=== PATIENT | male | born 1980 | race Hispanic/Latino ===

== ENCOUNTER 2019-08-01 19:56 | Emergency (ER) | payer SELFPAY ==
--- NOTE | ~2019-08-01 | XR_ITS ---
EXAMINATION: XR chest 2V 08/01/2019 22:40 INDICATION: Cough, fever and body aches PROCEDURE: 2 view chest COMPARISON: No prior studies for comparison. FINDINGS: The lungs are clear. The cardiomediastinal silhouette is within normal limits. There are no pleural effusions. There is no pneumothorax suspected. IMPRESSION: 1: NO ACUTE CARDIOPULMONARY DISEASE. Reviewed, dictated and finalized at location A. IN[facility]
[2019-08-01 19:59] VITALS: BP 127/91; PULSE 84; RESP 16; TEMP 36.9; O2SAT 98
--- NOTE | 2019-08-01 21:08 | ED.GENADULT ---
HPI - General Adult General Chief complaint: Upper Respiratory Infection <VIRGILIO Gibbs Last Filed: 08/01/19 23:09> Stated complaint: body aches/fever/cough <Leelee Scott PA-C - Last Filed: 08/01/19 23:09> Time Seen by Provider: 08/01/19 20:36 <VIRGILIO Gibbs Last Filed: 08/01/19 23:09> Source: patient <Leelee Scott PA-C - Last Filed: 08/01/19 23:09> Mode of arrival: ambulatory <VIRGILIO Gibbs Last Filed: 08/01/19 23:09> Limitations: no limitations <VIRGILIO Gibbs Last Filed: 08/01/19 23:09> History of Present Illness HPI narrative: Patient is here for evaluation of fever, chills and cough. Both of his children were diagnosed with influenza earlier this week. His labs here were negative. His fever is subjective and he is afebrile here. He is complaining of pain in his right jaw as well, he attributes the pain to severe coughing. He is otherwise healthy, his son is interpreting for him as the patient does not speak Maldivian. <Leelee Scott PA-C - Last Filed: 08/01/19 23:09> Onset (ago): day(s) <Leelee Scott PA-C - Last Filed: 08/01/19 23:09> Severity: moderate <VIRGILIO Gibbs Last Filed: 08/01/19 23:09> Associated symptoms: cough and nausea/vomiting (post-tussive vomiting) <VIRGILIO Gibbs Last Filed: 08/01/19 23:09> Treatments prior to arrival: none <VIRGILIO Gibbs Last Filed: 08/01/19 23:09> Related Data Allergies/adverse reactions: Allergies Allergy/AdvReac Type Severity Reaction Status Date / Time No Known Allergies Allergy Verified 08/01/19 20:36 <VIRGILIO Gibbs Last Filed: 08/01/19 23:09> Review of Systems Review of Systems: All systems reviewed & are unremarkable except as noted in HPI and below <Leelee Scott PA-C - Last Filed: 08/01/19 23:09> [facility] Social History Social History: Social History (Updated 08/01/19 @ 21:30 by Leelee Scott PA-C) Smoking status: Never smoker Alcohol intake: current Alcohol use details: occasional Substance use: never Gender identity (if verbalized by the patient): Male <Leelee Scott PA-C - Last Filed: 08/01/19 23:09> Exam Const: General: no acute distress and alert <Leelee Scott PA-C - Last Filed: 08/01/19 23:09> Orientation/consciousness: patient oriented x3 <Leelee Scott PA-C - Last Filed: 08/01/19 23:09> HENMT: Head: normal to inspection <Leelee Scott PA-C - Last Filed: 08/01/19 23:09> Ears: TM's normal bilaterally <Leelee Scott PA-C - Last Filed: 08/01/19 23:09> General nose exam: Normal nasal mucous membranes and turbinates present <Leelee Scott PA-C - Last Filed: 08/01/19 23:09> Teeth and gingiva: caries (pain when tooth 2 is tapped with tongue blade.) <Leelee Scott PA-C - Last Filed: 08/01/19 23:09> Eyes: Conjunctivae: conjunctivae normal <Leelee Scott PA-C - Last Filed: 08/01/19 23:09> Pupils: Equal, round and reactive pupils present <Leelee Scott PA-C - Last Filed: 08/01/19 23:09> Neck: Neck: no lymphadenopathy <Leelee Scott PA-C - Last Filed: 08/01/19 23:09> Resp: Effort & Inspection: normal respiratory effort <Leelee Scott PA-C - Last Filed: 08/01/19 23:09> Auscultation: clear to auscultation bilaterally (cough with deep inspiration) <Leelee Scott PA-C - Last Filed: 08/01/19 23:09> Cardio: Rate: regular rate <VIRGILIO Gibbs Last Filed: 08/01/19 23:09> Rhythm: regular rhythm <VIRGILIO Gibbs Last Filed: 08/01/19 23:09> Skin: General skin exam: normal color <Leelee Scott PA-C - Last Filed: 08/01/19 23:09> Rashes: no rashes <Leelee Scott PA-C - Last Filed: 08/01/19 23:09> Neuro: General: patient oriented x3 <VIRGILIO Gibbs Last Filed: 08/01/19 23:09> Extrem: General: normal to inspection <VIRGILIO Gibbs Last Filed: 08/01/19 23:09> Psych: Mental Status: mental
[2019-08-01 22:18] VITALS: PULSE 95; RESP 16
[2019-08-01] MEDS: ALBUTEROL SULFATE NEB 2.5 MG/3 ML INH INHALATION (22:18)
[2019-08-01 22:27] VITALS: PULSE 97; RESP 16
== END 2019-08-01 23:25 | disposition home or self-care (01) ==
PROVIDERS: Emergency Provider General Practice
DX: J06.9 Acute upper respiratory infection, unspecified (principal)
CPT/HCPCS: 71046; 87804; 94640; 99283

== ENCOUNTER 2019-11-28 04:11 | Emergency (ER) | payer SELFPAY ==
[2019-11-28 04:08] VITALS: BP 127/90; PULSE 62; RESP 18; TEMP 37.1; O2SAT 100
--- NOTE | 2019-11-28 04:14 | ECG_ITS ---
Measurements Intervals [place] Rate: 65 P: 24 DC: 158 QRS: 29 QRSD: 86 T: 10 QT: 373 QTc: 388 Interpretive Statements SINUS RHYTHM BASELINE ARTIFACT- I, II, III, AVR, AVL, V1-V2 NORMAL ECG Electronically Signed On 11-28-2019 7:07:29 CDT by Francisco Enriquez D.O.
--- NOTE | 2019-11-28 04:16 | ED.GENADULT ---
HPI - General Adult General Chief complaint: Chest Pain Stated complaint: BACK PAIN Time Seen by Provider: 11/28/19 04:15 History of Present Illness HPI narrative: Awoken from sleep by back pain. The pain is in the mid back on the right side. It radiates to the anterior chest wall bilaterally. Worse with certain movements. 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 No injury. No fever chills. Related Data Allergies Allergy/AdvReac Type Severity Reaction Status Date / Time No Known Allergies Allergy Verified 08/01/19 20:36 Review of Systems Review of Systems: All systems reviewed & are unremarkable except as noted in HPI and below Constitutional: Constitutional: Denies fever(s) Cardiovascular: Cardiovascular: Reports chest pain (chest wall) Respiratory: Respiratory: Denies dyspnea Gastrointestinal: Gastrointestinal: Denies abdominal pain, Denies nausea and Denies vomiting Musculoskeletal: Musculoskeletal: Reports back pain Neurologic: Denies numbness and Denies weakness PMFSH Social History Social History Smoking status: Never smoker Alcohol intake: current Substance use: never Gender identity (if verbalized by the patient): Male Exam Const: General: healthy appearing, no acute distress and alert Orientation/consciousness: patient oriented x3 Limitations: no limitations HENMT: Head: normal to inspection Chest: Chest palpation & inspection: tenderness rib (diffuse) Resp: Effort & Inspection: normal respiratory effort Auscultation: clear to auscultation bilaterally Cardio: Rate: regular rate Rhythm: regular rhythm GI: GI Palp: Yes Soft to palpation and No Tenderness to palpation present (GI) Back/Spine/Pelvis: Other: thoracic paraspinal tenderness Neuro: General: patient oriented x3, moves all extremities and CN's II-XI intact bilaterally Speech: normal speech Course Vital Signs Vital signs: Vital Signs Temperature 37.1 C 11/28/19 04:08 Pulse Rate 62 11/28/19 04:08 Respiratory Rate 18 11/28/19 04:08 Blood Pressure 127/90 11/28/19 04:08 Pulse Oximetry 100 11/28/19 04:08 Temperature 37.1 C 11/28/19 04:08 Pulse Rate 59 L 11/28/19 06:24 Respiratory Rate 16 11/28/19 06:24 Blood Pressure 109/80 11/28/19 06:24 Pulse Oximetry 99 11/28/19 06:24 Medical Decision Making MDM Narrative Medical decision making narrative: Pain clearly seems to be musculoskeletal in nature. Most likely due to overuse of muscles that he is not accustomed to. EKG normal. Vitals normal. Exam benign. Vital Signs Vital Signs: Vital Signs Temperature 37.1 C 11/28/19 04:08 Pulse Rate 62 11/28/19 04:08 Respiratory Rate 18 11/28/19 04:08 Blood Pressure 127/90 11/28/19 04:08 Pulse Oximetry 100 11/28/19 04:08 Temperature 37.1 C 11/28/19 04:08 Pulse Rate 59 L 11/28/19 06:24 Respiratory Rate 16 11/28/19 06:24 Blood Pressure 109/80 11/28/19 06:24 Pulse Oximetry 99 11/28/19 06:24 ECG Data EKG #1: Attestation: I personally reviewed and interpreted this ECG as follows: ECG completion date: 11/28/19 ECG completion time: 04:14 EKG Interpretation: normal rate, sinus rhythm, no ectopy, no ST changes, normal QRS and NL axis Discharge Plan Discharge Clinical Impression: Acute thoracic myofascial strain Qualifiers: Encounter type: initial encounter Qualified Code(s): S29.019A - Strain of muscle and tendon of unspecified wall of thorax, initial encounter Patient Disposition: Home, Self-Care Condition: Stable Prescriptions: New cyclobenzaprine 10 mg tablet 10 mg PO TID PRN (Reason: muscle spasm) Qty: 20 RF: 0 hydrocodone-acetaminophen [[place]] 5-325 mg tablet 1 tablet PO Q6H PRN (Reason: pain) Qty: 5 RF: 0 naproxen 500 mg tablet 500 mg PO BID PRN (Reason: pain) Qty: 30 RF: 0 No Action albuterol sulfate 90 mcg
[2019-11-28] MEDS: KETOROLAC 30 MG/ML VIAL (*BKC) IV PUSH (04:22)
[2019-11-28] MEDS: SODIUM CHLORIDE 0.9% IV 100 ML 500 ML (04:26)
[2019-11-28 05:20] VITALS: BP 111/77; PULSE 58; RESP 18; O2SAT 100
[2019-11-28 06:24] VITALS: BP 109/80; PULSE 59; RESP 16; O2SAT 99
== END 2019-11-28 06:25 | disposition home or self-care (01) ==
PROVIDERS: Emergency Provider Emergency Medicine
DX: S29.019A Strain of muscle and tendon of unspecified wall of thorax, initial encounter (principal); X58.XXXA Exposure to other specified factors, initial encounter
CPT/HCPCS: 93005; 96374; 96375; 99284; A9270; J1885; J3360

== ENCOUNTER 2020-08-06 05:34 | Observation (INO) | payer SELFPAY ==
[2020-08-06] VITALS (8 sets, daily range): BP systolic 119–164; BP diastolic 68–106; PULSE 57–72; RESP 14–16; TEMP 35.8–36.4; O2SAT 95–100; BMI 31.5
--- NOTE | ~2020-08-06 | CT_ITS ---
EXAMINATION: CT abdomen pelvis wo con DATE: 08/06/2020 06:06 INDICATION: Flank pain TECHNIQUE: Computed tomography (CT) of the abdomen and pelvis was performed without intravenous contr ast. Automated exposure control and iterative reconstruction technique were employed. The dose-length product was 723.77 mGy-cm. COMPARISON: None FINDINGS: Lung bases are clear. Heart size is normal. No pericardial or pleural effusion. Diffuse hepatic steat osis with focal sparing at the gallbladder fossa. 12 mm nodular soft tissue density as well as a tiny calcified gallstone at the neck of the gallbladder. No evident gallbladder wall thickening or perich olecystic inflammatory change to suggest acute cholecystitis. Spleen, pancreas and bilateral adrenal glands are normal. A couple nonobstructing 1-2 mm stones in the left kidney. No stones in the right k idney or along the bilateral ureters with no hydronephrosis. Bladder is normal. Bowels including the appendix are normal. No free intraperitoneal gas or fluid. No pathologically enlarged abdominal or pe lvic lymphadenopathy. Tiny fat-containing right inguinal hernia. Mild thoracolumbar levocurvature. Sm all sclerotic left iliac bone island. IMPRESSION: 1. A couple nonobstructing 1-2 mm left renal stones. 2. Cholelithiasis and indeterminate 12 mm density The gallbladder most likely an additional gallstone although differential would include polyp/neoplas m. Consider ultrasound for further evaluation. 3. Diffuse hepatic steatosis. Reviewed, dictated and finalized at location A. [facility] IMPRESSION: 1. A couple nonobstructing 1-2 mm left renal stones. 2. Cholelithiasis and indeterminate 12 mm density The gallbladder most likely an additional gallstone although differential would include polyp/neoplasm. Consider ultrasound for further evaluation. 3. Diffuse hepatic steatosis.
--- NOTE | ~2020-08-06 | NM_ITS ---
EXAMINATION: NM hepatobiliary w pharm EXAM DATE: 08/06/2020 15:17 INDICATION: RUQ abdominal pain, acute cholecystitis? . TECHNIQUE: 5 mCi Tc-99m mebrofenin (Choletec) was administered intravenously. Scintigraphic images o f the abdomen were obtained for one hour. At the 1 hour time point, 2 mcg sincalide (Kinevac) was adm inistered by slow intravenous infusion, and imaging was continued for 30 minutes. Gallbladder ejectio n fraction was calculated by the technologist. Correlation is made to CT abdomen earlier same date. FINDINGS: There is normal clearance of radiotracer from the blood pool. There is homogeneous tracer u ptake by the liver. Activity progresses to the gallbladder and bowel. The gallbladder ejection fract ion (GBEF) is 7 % (most patients with gallbladder dysfunction have GBEF < 35%, but there is overlap w ith the normal range of 10-90%). IMPRESSION: Gallbladder ejection fraction 7%, suggesting gallbladder dysfunction and/or chronic chol ecystitis. Reviewed, dictated and finalized at location B. [facility] [employer] IMPRESSION: Gallbladder ejection fraction 7%, suggesting gallbladder dysfuncti on and/or chronic cholecystitis.
[2020-08-06] MEDS: ONDANSETRON INJ 4 MG/2 ML VIAL IV PUSH (05:58)
[2020-08-06] MEDS: MORPHINE SULFATE (*CRX) 4 MG/ML INJ IV PUSH (05:58)
[2020-08-06 05:59] LABS: Basophils Percent Auto 0.4 % (0.2-1.2); Eosinophils Absolute Auto 0.3 K/mm3 (0-0.3); Eosinophils Percent Auto 3.3 % (0-4.4); Hematocrit 45.9 % (42.0-52.0); Hemoglobin 15.8 g/dL (14.0-18.0); Immature Granulocyte Absolute 0.04 K/mm3 (0.00-0.031); Immature Granulocyte Percent A 0.5 % (0-0.5); Lymphocytes Absolute Auto 3.96 K/mm3 (0.9-3.2); Lymphocytes Percent Auto 47.8 % (18.3-44.2); Mean Corpuscular HGB Conc 34.4 g/dl (32-36); Mean Corpuscular Hemoglobin 31.9 pg (26-34); Mean Corpuscular Volume 92.5 fl (80-100); Mean Platelet Volume 11.2 fl (7.4-10.4); Monocytes Absolute Auto 0.8 K/mm3 (0.1-0.6); Monocytes Percent Auto 9.3 % (2.6-8.5); Neutrophils Absolute Auto 3.2 K/mm3 (1.3-6.7); Neutrophils Percent Auto 38.7 % (45.5-73.1); Platelet Count Result 188 k/mm3 (150-375); Red Blood Count 4.96 M/mm3 (4.6-6.20); Red Cell Distribution Width 13.2 % (11.5-14.5); White Blood Count 8.3 K/mm3 (4.5-10.0)
[2020-08-06] MEDS: SODIUM CHLORIDE 0.9% IV 1,000 ML 999 ML IV CONT (06:00)
[2020-08-06 06:11] LABS: Alanine Aminotransferase 99 U/L (4-50); Albumin Level 4.1 g/dL (3.5-5.1); Alkaline Phosphatase 94 U/L (38-126); Anion Gap 6 mmol/L (8-16); Aspartate Amino Transferase 41 U/L (17-59); Bilirubin,Total 0.6 mg/dL (0.2-1.3); Blood Urea Nitrogen 8 mg/dL (9-20); Calcium 8.5 mg/dL (8.4-10.2); Carbon Dioxide 29 mmol/L (22-30); Chloride 106 mmol/L (98-107); Estimated Glomerular Filt Rate > 60; Glucose 121 mg/dL (75-110); Potassium 3.8 mmol/L (3.4-5.0); Sodium 141 mmol/L (137-145)
--- NOTE | 2020-08-06 06:13 | ED.GENADULT ---
HPI - General Adult General Chief complaint: Abdominal Pain Stated complaint: abd pain Time Seen by Provider: 08/06/20 05:51 History of Present Illness HPI narrative: Patient a 39-year-old gentleman who presents the emergency department with chief complaint of flank pain. The patient states that the left flank area started hurting reports it radiates to his abdomen. The patient reports she is unable to get comfortable in any position reports that he has had some nausea with it as well. The patient denies fever denies chills denies cough. Patient reports has had no diarrhea. Patient reports he has prior surgical history of hernia repair Related Data Allergies Allergy/AdvReac Type Severity Reaction Status Date / Time No Known Allergies Allergy Verified 08/01/19 20:36 Review of Systems Review of Systems: Narrative: A 10 system review of systems was completed on the patient and is negative except for what is stated in the HPI. Nursing and ancillary documentation was reviewed. [facility] Social History Social History Smoking status: Never smoker Alcohol intake: current Substance use: never Gender identity (if verbalized by the patient): Male Comments Past medical history is negative Surgical history significant for hernia repair Exam Narrative: Exam Narrative: GENERAL: Well-appearing, well-nourished, and in no acute distress. HEAD: Normocephalic, atraumatic. EYES: PERRLA and EOMI. ENT: Nares clear, no rhinorrhea or epistaxis. Mucous membranes moist. NECK: Supple. CHEST: Clear to auscultation. No respiratory distress. HEART: Regular rate and rhythm. No murmur heard. Normal peripheral pulses. ABDOMEN: Soft, nontender, nondistended, normal active bowel sounds. EXTREMITIES: Normal range of motion. No edema. SKIN: Warm, dry, no rash. NEURO: No focal deficits. Alert and oriented x3. PSYCH: Normal mood and affect. Course Course Emergency Course: Patient CT scan showed evidence of gallstones with a 1.1 cm stone and a 0.3 cm stone in the gallbladder neck. There is a surrounding fat stranding concerning for acute cholecystitis. Patient's liver enzymes did not show any evidence of obstructive pattern patient's white blood cell count was within normal limits the patient's pain was improved but still is having pain at this time the case was discussed with Dr. Deal of general surgery and the patient will be admitted to Dr. Deal service Vital Signs Vital signs: Vital Signs Temperature 36.4 C 08/06/20 05:38 Pulse Rate 65 08/06/20 05:38 Respiratory Rate 16 08/06/20 05:38 Blood Pressure 164/106 H 08/06/20 05:38 Pulse Oximetry 100 08/06/20 05:38 Temperature 36.3 C L 08/06/20 06:52 Pulse Rate 64 08/06/20 06:52 Respiratory Rate 16 08/06/20 06:52 Blood Pressure 135/83 08/06/20 06:52 Pulse Oximetry 100 08/06/20 06:52 Medical Decision Making Vital Signs Vital Signs: Vital Signs Temperature 36.4 C 08/06/20 05:38 Pulse Rate 65 08/06/20 05:38 Respiratory Rate 16 08/06/20 05:38 Blood Pressure 164/106 H 08/06/20 05:38 Pulse Oximetry 100 08/06/20 05:38 Temperature 36.3 C L 08/06/20 06:52 Pulse Rate 64 08/06/20 06:52 Respiratory Rate 16 08/06/20 06:52 Blood Pressure 135/83 08/06/20 06:52 Pulse Oximetry 100 08/06/20 06:52 Lab Data Result diagrams: 08/06/20 05:53 08/06/20 05:53 Labs: Lab Results 08/06/20 08/06/20 08/06/20 Range/Units 05:53 05:53 06:33 WBC 8.3 (4.5-10.0) K/mm3 RBC 4.96 (4.6-6.20) M/mm3 Hgb 15.8 (14.0-18.0) g/dL Hct 45.9 (42.0-52.0) % MCV 92.5 (80-100) fl MCH 31.9 (26-34) pg MCHC 34.4 (32-36) g/dl RDW 13.2 (11.5-14.5) % Plt Count 188 (150-375) k/mm3 MPV 11.2 H (7.4-10.4) fl Immature Gran % (Auto) 0.5 (0-0.5) % Neut % (Auto) 38.7 L (45.5-73.1) % Lymph % (Auto) 47.8 H
[2020-08-06] MEDS: HYDROmorphone HCL INJ (*CRX) 1 MG/ML SYR IV PUSH (06:30)
[2020-08-06 07:02] LABS: Add Urine Microscopic? NO; Appearance Urine Clear (Clear); Bilirubin Urine Negative (Negative); Blood Urine Negative (Negative); Color Urine Yellow (Yellow); Glucose Urine UA Negative (Negative); Ketones Urine Negative (Negative); Leukocyte Esterase Ur Negative LEU/UL (Negative); Mucus Urine Few /lpf; Nitrate Urine Negative (Negative); Protein Urine Negative (Negative); RBC Urine 0-2 /hpf (0-2); Specific Grav Ur 1.029 (1.001-1.035); Urobilinogen Urine Negative mg/dL (<2.0); WBC Urine 0-3 /hpf
[2020-08-06 08:13] LABS: Amylase 78 U/L (30-110); Lipase 70 U/L (23-300)
--- NOTE | 2020-08-06 08:45 | ADMGEN ---
This patient, Kamran Hall, was admitted to Medical Room 342-01. Patient/family oriented to hospital policies and general routines including ID bracelet, bed and alarms, visiting hours, pain management, procedures, bathroom and other care routines, personal items, smoking policy, room service/diet, and visiting hours. Information on how to activate the Rapid Response Team has been discussed. Patient/Family are encouraged to report perceived risks to care and to ask questions if they do not understand what they are told or what they should do.
--- NOTE | 2020-08-06 09:32 | PM.IMHP ---
H&P: HPI History of Present Illness Date/Time: 08/06/20 09:32 Chief Complaint: Upper abdominal pain Narrative: Kamran Hall is a 39 year old male with no significant past medical history, who presented to the ER with complaints of right flank and RUQ abdominal pain. Last night for dinner he had a bologna sandwich and chiles with hot sauce. He woke up around 4:00 am with a sudden onset of right flank pain. He reports this pain radiated to his upper abdomen and to his mid back. He has associated bloating, but denies nausea, vomiting, or fevers. Never had this pain in the past. With the unrelenting abdominal pain, he presented to the ER for further evaluation. CT scan of the abdomen and pelvis was done in the ER and the virtual radiologist interpretation suggested gallstone/sludge in the neck of the gallbladder with gallbladder distention and mild infiltration of the adjacent fat, concerning for acute cholecystitis. The radiologist reading this morning suggests a 12 mm nodular soft tissue density as well as a tiny gallstone at the neck of the gallbladder with no evidence wall thickening or pericholecystic inflammatory change. Incidentally noted is a couple nonobstructing 1-2 mm left renal stones, diffuse hepatic steatosis, and a tiny fat-containing right inguinal hernia. Labs showed a normal white blood cell count, normal LFTs, and normal lipase. Our service was consulted by the ED physician for possible acute cholecystitis. The patient is now being seen on the medical floor. He reports his abdominal pain has improved significantly. He denies any other complaints at this time. He has had a previous ventral hernia repair with mesh in [place] about 15 years ago, but no other abdominal surgeries. He is primarily [place]ese-speaking and an typesetters printer was used when communicating with the patient. Review of Systems Constitutional: Constitutional: Reports as per HPI, Denies chills, Denies fatigue, Denies fever(s) and Denies headache(s) Eyes: Eyes: Reports no additional eye complaints, Denies change in vision and Denies loss of vision ENT: Reports Normal hearing present, Denies dizziness and Denies headache(s) Cardiovascular: Cardiovascular: Reports no additional cardiovascular complaints, Denies chest pain, Denies syncope, Denies leg edema, Denies lightheadedness, Denies radiating jaw, neck or arm pain and Denies dyspnea Respiratory: Respiratory: Reports no additional respiratory complaints, Denies cough, Denies dyspnea and Denies wheezing Gastrointestinal: Gastrointestinal: Reports as per HPI, Reports no additional gastrointestinal complaints, Reports abdominal pain (upper radiating to right flank and mid back), Reports bloating, Denies change in bowel habits, Denies constipation, Denies diarrhea, Denies nausea and Denies vomiting Genitourinary: Genitourinary: Reports no additional male genitourinary complaints, Denies hematuria and Denies dysuria Musculoskeletal: Musculoskeletal: Reports no additional musculoskeletal complaints, Denies deformity, Denies joint swelling, Denies radiating pain into limb and Denies tingling Integumentary/Breasts: Skin/Breast: Denies pruritus, Denies lesions, Denies erythema, Denies wounds and Denies jaundice Neurologic: Reports system reviewed and no additional complaints, except as documented, Reports Normal hearing present, Denies dizziness, Denies syncope, Denies headache(s), Denies loss of vision, Denies tingling and Denies tremor(s) Psychiatric: Psychiatric: Denies anxiety and Denies depression Endocrine: Endocrine: Denies fatigue PMFSH Past Medical History Medical History Back pain Surgical History Surgical History History of hernia repair Ventral hernia repair with mesh about 15-16 years ago in [place]. Family History Family History Mother
[2020-08-06] MEDS: SODIUM CHLORIDE 0.9% IV 1,000 ML 125 ML IV CONT (11:33)
--- NOTE | 2020-08-06 13:28 | PC.NURSE ---
Patient to radiology via hospital wheelchair.
--- NOTE | 2020-08-06 15:00 | PC.NURSE ---
Patient returned from radiology via hospital wheelchair.
[2020-08-07] VITALS (12 sets, daily range): BP systolic 119–145; BP diastolic 69–90; PULSE 58–82; RESP 13–18; TEMP 35.6–36.6; O2SAT 94–100
[2020-08-07] MEDS: SODIUM CHLORIDE 0.9% IV 1,000 ML 125 ML IV CONT (02:25)
[2020-08-07] MEDS: CHLORHEXIDINE GLUCONATE 4% SOL 120 ML BTL 1 APPLIC TOPICAL (06:05)
[2020-08-07 06:10] LABS: Alanine Aminotransferase 133 U/L (4-50); Albumin Level 3.9 g/dL (3.5-5.1); Alkaline Phosphatase 62 U/L (38-126); Anion Gap 4 mmol/L (8-16); Aspartate Amino Transferase 54 U/L (17-59); Blood Urea Nitrogen 7 mg/dL (9-20); Calcium 8.7 mg/dL (8.4-10.2); Carbon Dioxide 31 mmol/L (22-30); Chloride 103 mmol/L (98-107); Estimated CRCL calculation 119 ml/min; Estimated Glomerular Filt Rate > 60; Glucose 104 mg/dL (75-110); Lipase 51 U/L (23-300); Potassium 3.8 mmol/L (3.4-5.0); Sodium 138 mmol/L (137-145)
[2020-08-07 06:34] LABS: Basophils Percent Auto 0.4 % (0.2-1.2); Eosinophils Absolute Auto 0.2 K/mm3 (0-0.3); Eosinophils Percent Auto 2.5 % (0-4.4); Hematocrit 43.9 % (42.0-52.0); Hemoglobin 15.1 g/dL (14.0-18.0); Immature Granulocyte Absolute 0.06 K/mm3 (0.00-0.031); Immature Granulocyte Percent A 0.8 % (0-0.5); Lymphocytes Absolute Auto 3.03 K/mm3 (0.9-3.2); Lymphocytes Percent Auto 42.9 % (18.3-44.2); Mean Corpuscular HGB Conc 34.4 g/dl (32-36); Mean Corpuscular Hemoglobin 31.1 pg (26-34); Mean Corpuscular Volume 90.3 fl (80-100); Mean Platelet Volume 11.5 fl (7.4-10.4); Monocytes Absolute Auto 0.6 K/mm3 (0.1-0.6); Monocytes Percent Auto 8.5 % (2.6-8.5); Neutrophils Absolute Auto 3.2 K/mm3 (1.3-6.7); Neutrophils Percent Auto 44.9 % (45.5-73.1); Platelet Count Result 197 k/mm3 (150-375); Red Blood Count 4.86 M/mm3 (4.6-6.20); Red Cell Distribution Width 12.8 % (11.5-14.5); White Blood Count 7.1 K/mm3 (4.5-10.0)
--- NOTE | 2020-08-07 08:35 | P.HPUP_ITS ---
History and Physical Update Update Date/Time: 08/07/20 08:35 History and Physical has been reviewed, including an updated exam of the patient. There are changes in the patient's condition. Patient had a HIDA scan with ejection fraction yesterday showing only a 7% ejection fraction but sug gesting chronic cholecystitis with cholelithiasis rather than acute cholecystitis. Risks, benefits, and alternatives A laparoscopic cholecystectomy, possible intraoperative cholangiogram, possible open cholecystectomy have been discussed and questions answered. Patient agrees to proceed with procedure.
--- NOTE | 2020-08-07 09:27 | WPDANESEPPF ---
Anes - Initial Pre Proc Eval Procedure: Operation Date: 08/07/20 11:00 Proposed Procedures p Laparoscopic Cholecystectomy,Possible Intraoperative Cholangiograms,Possible Open - Justen Deal MD Date/Time: 08/07/20 09:27 Surgeon: Justen Deal MD Pre Op Diagnosis: Cholelithiasis, Biliary Colic Patient Data Age: 39 Gender: M Height: 1.73 m Weight: 94.1 kg Last Vital Signs Temp 35.8 C L 08/07/20 08:52 Pulse 60 08/07/20 08:52 Resp 13 08/07/20 08:52 BP 141/90 H 08/07/20 08:52 Pulse Ox 98 08/07/20 08:52 Allergies Allergy/AdvReac Type Severity Reaction Status Date / Time No Known Allergies Allergy Verified 08/06/20 09:30 Home Medications Medication Instructions Recorded Confirmed Type cyclobenzaprine 10 mg PO TID PRN #20 tablet 11/28/19 08/06/20 Rx hydrocodone-acetaminophen [[place]] 1 tablet PO Q6H PRN #5 tablet 11/28/19 08/06/20 Rx naproxen 500 mg PO BID PRN #30 tablet 11/28/19 08/06/20 Rx Laboratory Tests 08/07/20 08/07/20 08/07/20 05:40 05:40 05:40 WBC 7.1 K/mm3 K/mm3 (4.5-10.0) RBC 4.86 M/mm3 M/mm3 (4.6-6.20) Hgb 15.1 g/dL g/dL (14.0-18.0) Hct 43.9 % % (42.0-52.0) MCV 90.3 fl fl (80-100) MCH 31.1 pg pg (26-34) MCHC 34.4 g/dl g/dl (32-36) RDW 12.8 % % (11.5-14.5) Plt Count 197 k/mm3 k/mm3 (150-375) MPV 11.5 fl H fl (7.4-10.4) Immature Gran % (Auto) 0.8 % H % (0-0.5) Neut % (Auto) 44.9 % L % (45.5-73.1) Lymph % (Auto) 42.9 % % (18.3-44.2) [place] % (Auto) 8.5 % % (2.6-8.5) Eos % (Auto) 2.5 % % (0-4.4) Baso % (Auto) 0.4 % % (0.2-1.2) Lymph # (Auto) 3.03 K/mm3 K/mm3 (0.9-3.2) [place] # (Auto) 0.6 K/mm3 K/mm3 (0.1-0.6) Eos # (Auto) 0.2 K/mm3 K/mm3 (0-0.3) Baso # (Auto) 0.0 K/mm3 K/mm3 (0.0-0.1) Abs Immat Gran (auto) 0.06 K/mm3 H K/mm3 (0.00-0.031) Absolute Neuts (auto) 3.2 K/mm3 K/mm3 (1.3-6.7) Absolute Nucleated RBC 0.0 K/mm3 K/mm3 (0.0-0.012) Nucleated RBC % 0.0 % % (0.0-0.2) Sodium 138 mmol/L mmol/L (137-145) Potassium 3.8 mmol/L mmol/L (3.4-5.0) Chloride 103 mmol/L mmol/L (98-107) Carbon Dioxide 31 mmol/L H mmol/L (22-30) Anion Gap 4 mmol/L L mmol/L (8-16) BUN 7 mg/dL L mg/dL (9-20) Creatinine 0.80 mg/dL mg/dL (0.7-1.3) Estim Creat Clear Calc 119 ml/min ml/min Estimated GFR > 60 (59 - ) Glucose 104 mg/dL mg/dL (75-110) Calcium 8.7 mg/dL mg/dL (8.4-10.2) Total Bilirubin 1.0 mg/dL mg/dL (0.2-1.3) AST 54 U/L U/L (17-59) ALT 133 U/L H U/L (4-50) Alkaline Phosphatase 62 U/L U/L (38-126) Total Protein 7.0 g/dL g/dL (6.3-8.2) Albumin 3.9 g/dL g/dL (3.5-5.1) Lipase 51 U/L U/L (23-300) Blood Type O Positive Antibody Screen Negative Patient hx anesthesia problems: none Family hx anesthesia problems: none [facility] Past Medical History Medical History Back pain Surgical History Surgical History History of hernia repair Ventral hernia repair with mesh about 15-16 years ago in [place]. Family History Family History Mother Diabetes mellitus Social History Social History Smoking status: Never smoker Alcohol intake: current Alcohol use details: once per week Substance use: never Living arrangements: with family Additional living arrangements comments: With his significant other and 5 year old child Occupation/[employer]
[2020-08-07] MEDS: LACTATED RINGERS 1,000 ML 30 ML IV CONT ×2 (09:50→13:09)
--- NOTE | 2020-08-07 10:14 | SUR.PREOP ---
PT SPOKE WITH ANESTHESIA VIA STRATUS, COMPENSATION SPECIALIST [facility] #[id number]
[2020-08-07] MEDS: BUPIVACAINE/EPINEPHRINE 0.5% 30 ML VIAL 20 ML INFILTRATE (12:13)
--- NOTE | 2020-08-07 13:16 | PM.PROC ---
Procedure Note - Detailed Date of procedure: 08/08/20 Pre-op diagnosis: Cholelithiasis, Biliary Colic 1. Chronic Cholecystitis with Cholelithiasis 2. Biliary dyskinesia Post-op diagnosis: same Procedure performed: Laparoscopic Cholecystectomy Description of procedure: Patient was seen preoperatively in his hospital room and risks, benefits and alternatives confirmed. Patient was taken to the operating room and general anesthesia was induced. A time out was then preformed with the surgery team confirming patient and site of surgery. The abdomen was prepped and draped in the usual sterile fashion. Because the the patient has had previous hernia surgery near the umbilicus I started by making a small incision just below the left costal margin with an 11 blade knife. We placed 2 towel clips on this area and then using Veress needle technique with a water drop test we entered the abdomen and insufflated to 14 mmHg pressure CO2 gas. Following this a 5 mm trocar was placed over a 0 degree 5 mm laparoscope and we carefully twisted this into the abdominal cavity under direct vision. We entered without any injury to intra-abdominal contents and we could see within the abdomen well. The patient did not have any adhesions underneath his umbilical hernia repair. Also it did not look to me like there was any mesh in the area under his umbilicus. Compression in the area revealed no residual hernia. I decided to make a small incision just to the right of the umbilicus extending his scar inferior to the umbilicus slightly to the right side and then we placed a standard 12 mm trocar in that site under direct vision. The scope was switched to a 10 mm laparoscoped and placed at the umbilical site. First under low flow and then under high flow the abdomen was insufflated with carbon dioxide never exceeding a pressure of 14. Two more 5 mm trocars were then introduced under direct vision. The following trocars were introduced under direct vision: two 5 mm trocars along the right costal margin laterally in the subcostal area. There were significant omental adhesions to the underside of the gallbladder. these were attached to the anterior inferior edge of the right lobe of the liver and we could not even see the gallbladder when we 1st tried to start our dissection. These were taken down with blunt and sharp dissection using some Bovie cautery for hemostasis. We were able to dissect this completely away from the neck of the gallbladder. I then carefully used the L-shaped cautery and the [place] dissector to dissect out the triangle of Calot. I then was able to dissect out both the cystic duct and cystic artery and identify a window of safety. The gall bladder was grasped and the cystic duct and artery were dissected free and clipped with an 5 mm endo-clip pourer buggy ladle. The cystic duct and artery were clipped with use of 2 clips on the patient's side 1 on the gallbladder side utilizing a 5 mm endoclip-pourer buggy ladle. The cystic duct was then transected. The cystic artery was also transected at this point. The gall bladder was removed using electrocautery and then removed from the abdomen using a large 10 mm grasper via the umbilical incision. In order to get the distended GB out of the abdomen I did make the fascial defect slightly larger with Medina scissors. We did remove a part of the cystic duct as we were pulling the gallbladder up through the fascia and also there was a hole made in the gallbladder and some of the bile fluid was suctioned out of it as we extracted it from the abdomen. Did not appear that there was any bile lost within the abdominal cavity. Following this using the 5 mm 0 degree laparoscoped I placed to 1. Vicryl sutures with the Dedrick cone at the site of the 10 mm port just to the right of the umbilicus. This nicely reapproximated the fascia at this site. Also externally I used 1 0 Vicryl suture to suture some fascia closed over this site. (This may have been i
[2020-08-07] MEDS: ONDANSETRON INJ 4 MG/2 ML VIAL IV PUSH (13:53)
[2020-08-07] MEDS: diphenhydrAMINE HCl INJ 50 MG/ML VIAL 25 MG IV PUSH (14:05)
[2020-08-07] MEDS: MORPHINE SULFATE (*CRX) 4 MG/ML INJ 2 MG IV PUSH (14:25)
[2020-08-07] MEDS: HYDROcodone/acetaminophen (*CRX) 5-325 MG TABLET 1 TAB PO (16:28)
--- NOTE | 2020-08-07 17:50 | PM.DS ---
DS: Admitting Diagnosis Admitting Diagnosis Admitting Diagnosis: Cholelithiasis with possible acute cholecystitis DS: Discharge Diagnosis Discharge Diagnosis (1) Cholelithiasis with chronic cholecystitis without biliary obstruction: Onset Date: Unknown Code(s): K80.10 - Calculus of gallbladder with chronic cholecystitis without obstruction Status: Acute Assessment and Plan: and acute extra patient of this is what brought the patient to the hospital. Further workup showed a HIDA scan with the gallbladder filling but only a 7% ejection fraction consistent with chronic cholecystitis and/or biliary colic. Patient wished to proceed with definitive treatment while in the hospital which include is laparoscopic cholecystectomy performed today. He is having an uneventful recovery and should be okay to go home. (2) Obesity (BMI 30-39.9): Onset Date: Unknown Code(s): E66.9 - Obesity, unspecified Status: Acute Assessment and Plan: Patient is encouraged to follow low-fat diet and increase activity to lose weight into a normal body habitus range. (3) Biliary colic: Onset Date: ~08/05/20 Code(s): K80.50 - Calculus of bile duct without cholangitis or cholecystitis without obstruction Status: Acute Assessment and Plan: please see summary below. DS: Summary Hospital Course Reason for hospitalization: biliary colic with chronic cholecystitis and cholelithiasis Hospital Course: Patient uneventful hospital course. He was admitted with right upper quadrant pain with suggestion of acute cholecystitis by CT scan. Subsequent PET a biliary scan however showed the gallbladder did fill so he did not have acute cholecystitis but rather chronic cholecystitis with biliary colic and S only a 7% ejection fraction on the bed biliary scan. Patient chose to stay overnight and go ahead with semi-urgent surgical intervention the following day. He had uneventful laparoscopic cholecystectomy the took a little bit longer because is omentum was wrapped up around the gallbladder and attached to the anterior inferior edge of the right lobe of the liver. Please see the op note. Postop day 1 he was recovering well tolerating a low-fat diet he was discharged. Status at Discharge Cognitive/behavioral status at discharge: normal Functional status at discharge: independent ambulation Overall status at discharge: patient is not back to baseline ( still moving slowly after surgical intervention.) Time Spent with Patient Time attestation: Total time spent providing and/or coordinating discharge services: Time spent: Less than 30 minutes Specific discharge activities: See home going instructions on discharge instruction sheet. Follow-up in the office in 2 weeks. Exam Const: General: cooperative, no acute distress, alert and awake Orientation/consciousness: patient oriented x3 HENMT: Mouth: Yes moist mucous membranes Neck: Neck: normal visual inspection Chest: Chest palpation & inspection: normal inspection of the chest Resp: Effort & Inspection: normal respiratory effort Auscultation: clear to auscultation bilaterally Cardio: Jugular venous distension: no JVD Rate: regular rate Rhythm: regular rhythm GI: Inspection: incision ( Clean and dry with surgical glue in place) Auscultation: normal bowel sounds Rectal Exam: deferred Neuro: General: patient oriented x3 and moves all extremities Speech: normal speech Extrem: General: normal exam except as noted Psych: Mental Status: mental status grossly normal Speech and movement: Normal speech and movement present Affect: normal affect Thought content: Yes Normal thought content present DS: Data Data Completed and Pending Pending studies at discharge: Pending at discharge 08/07/20 11:45 Surgical [PTH] Routine Labs on day of discharge: Labs from last 24 hours 08/07/20 08/07/20 08/07/20 05:40 05:40 05:40 WBC 7.1
== END 2020-08-07 18:30 | disposition home or self-care (01) ==
LOC: ANHED 06:12 → ANH3MED 07:35
PROVIDERS: Admitting Provider Surgery; Emergency Provider Emergency Medicine; Visit Provider Surgery
PROC: 0FT44ZZ Resection of Gallbladder, Percutaneous Endoscopic Approach (ICD-10-PCS; CPT 47562; principal; 2020-08-07 11:00)
DX: K80.10 Calculus of gallbladder with chronic cholecystitis without obstruction (principal); K80.50 Calculus of bile duct without cholangitis or cholecystitis without obstruction; E66.9 Obesity, unspecified; Z68.31 Body mass index [BMI] 31.0-31.9, adult
CPT/HCPCS: 47562; 36415; 74176; 78227; 80053; 81003; 82150; 83690; 85025; 86850; 86900; 86901; 88304; 96361; 96365; 96366; 96375; 99285; A9270; A9537; G0378; G0379; J1100; J1170; J1200; J2250; J2270; J2405; J2704; J2710; J2805; J3010; J7030; J7120